=== PATIENT | female | born 1995 | race Hispanic/Latino ===

== ENCOUNTER 2017-12-08 20:10 | Emergency (ER) | payer BC ==
--- NOTE | 2017-12-08 21:05 | EDPHYS ---
Physician Documentation [facility] Name: Imelda Tse Age: 22 yrs Sex: Female : 1995 Arrival Date: 12/08/2017 Time: 20:13 Bed 9 Private MD: ED Physician Roosevelt Chase HPI: 12/08 21:38 This 22 yrs old Female presents to ER via Ambulatory with complaints of Ear snw Pain. 21:38 The patient presents with pain, that is acute. The complaints affect the right ear. snw Onset: The symptoms/episode began/occurred suddenly, today. Associated signs and symptoms: The patient has no apparent associated signs or symptoms. Severity of symptoms: At their worst the symptoms were moderate. The patient has not experienced similar symptoms in the past. It is unknown whether or not the patient has recently seen a physician. no fever, no cough, no nasal dc. 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 - Social history:: Smoking status: Patient/guardian denies using tobacco. - Ebola Screening: : No symptoms or risks identified at this time. ROS: 21:36 Constitutional: Negative for fever, chills, and weight loss, Eyes: Negative for injury, snw pain, redness, and discharge, ENT: Negative for injury and discharge, right ear pain Neck: Negative for injury, pain, and swelling, Cardiovascular: Negative for chest pain, palpitations, and edema, Respiratory: Negative for shortness of breath, cough, wheezing, and pleuritic chest pain, Abdomen/GI: Negative for abdominal pain, nausea, vomiting, diarrhea, and constipation, Back: Negative for injury and pain, : Negative for injury, bleeding, discharge, and swelling, MS/Extremity: Negative for injury and deformity, Skin: Negative for injury, rash, and discoloration, Neuro: Negative for headache, weakness, numbness, tingling, and seizure, Psych: Negative for depression, anxiety, suicide ideation, homicidal ideation, and hallucinations. Exam: 21:36 Constitutional: This is a well developed, well nourished patient who is awake, alert, snw and in no acute distress. Head/Face: Normocephalic, atraumatic. Eyes: Pupils equal round and reactive to light, extra-ocular motions intact. Lids and lashes normal. Conjunctiva and sclera are non-icteric and not injected. Cornea within normal limits. Periorbital areas with no swelling, redness, or edema. Neck: Trachea midline, no thyromegaly or masses palpated, and no cervical lymphadenopathy. Supple, full range of motion without nuchal rigidity, or vertebral point tenderness. No Meningismus. Chest/axilla: Normal chest wall appearance and motion. Nontender with no deformity. No lesions are appreciated. Cardiovascular: Regular rate and rhythm with a normal S1 and S2. No gallops, murmurs, or rubs. Normal PMI, no JVD. No pulse deficits. Respiratory: Lungs have equal breath sounds bilaterally, clear to auscultation and percussion. No rales, rhonchi or wheezes noted. No increased work of breathing, no retractions or nasal flaring. Abdomen/GI: Soft, non-tender, with normal bowel sounds. No distension or tympany. No guarding or rebound. No evidence of tenderness throughout. Back: No spinal tenderness. No costovertebral tenderness. Full range of motion. Skin: Warm, dry with normal turgor. Normal color with no rashes, no lesions, and no evidence of cellulitis. MS/ Extremity: Pulses equal, no cyanosis. Neurovascular intact. Full, normal range of motion. Neuro: Awake and alert, GCS 15, oriented to person, place, time, and situation. Cranial nerves II-XII grossly intact. Motor strength 5/5 in all extremities. Sensory grossly intact. Cerebellar exam normal. Normal gait. 21:36 ENT: External ear(s): are unremarkable, Ear canal(s): are normal, TM's: fluid levels, on the right, Nose: is normal, Mouth: is normal, Dental exam: normal, Voice: is normal. Vital Signs: 21:14 BP 135 / 92; Pulse 78; Resp 16 S; Temp 97.7(O); Pulse Ox 96% on R/A; Weight 63.05 kg bb (R); Height 5 ft. 4 in. (162.56 cm) (R); Pain 8/10; 21:14 Body Mass Index 23.86 (63.05 kg, 162.56 cm) bb MDM: 20:56 Patient medically screened. snw 21:38 Data reviewed: vital signs, nurses notes. Data interpreted: Pulse oximetry: on room air snw is 96 %. Interpretation: acceptable. Counseling: I had a detailed discussion with the patient and/or guardian regarding: the historical points, exam findings, and any diagnostic results supporting the discharge/admit diagnosis, the presence of at least one elevated blood pressure reading (>120/80) during this emergency department visit, the need for outpatient follow up, to return to the emergency department if symptoms worsen or persist or if there are any questions or concerns that arise at home. Special discussion: I have referred the patient to see his PCP for further evaluation of high blood pressure. Based on the history and exam findings, there is no indication for further emergent testing or inpatient evaluation. I discussed with the patient/guardian the need to see the primary care provider for further evaluation of the symptoms. Administered Medications: 21:45 Drug: predniSONE 40 mg Route: PO; bb 22:06 Follow up: Response: No adverse reaction bb 21:45 Drug: Pepcid 20 mg Route: PO; bb 22:06 Follow up: Response: No adverse reaction bb Disposition: 12/09 06:50 Co-signature as Attending Physician, Roosevelt Chase MD I agree with the assessment and wa plan of care. Disposition: 12/08/17 21:03 Discharged to Home. Impression: Otalgia, right ear. - Condition is Stable. - Discharge Instructions: Earache, Adult. - Prescriptions for Prednisone 20 mg Oral Tablet - take 2 tablet by ORAL route once daily for 5 days; 10 tablet. Pepcid 20 mg Oral Tablet - take 1 tablet by ORAL route once daily; 20 tablet. - Medication Reconciliation Form, Thank You Letter, Antibiotic Education, Prescription Opioid Use form. - Follow up: Private Physician; When: 2 - 3 days; Reason: Recheck today's complaints, Continuance of care, Re-evaluation by your physician. Follow up: Emergency Department; When: As needed; Reason: Worsening of condition. Signatures: Thelma Bal FNP-C FNP-Robertow Sia Andrews RN RN bb Appiah, William, MD MD wa Corrections: (The following items were deleted from the chart) 12/08 22:07 21:03 12/08/2017 21:03 Discharged to Home. Impression: Otalgia, right ear. Condition is bb Stable. Forms are Medication Reconciliation Form, Thank You Letter, Antibiotic Education, Prescription Opioid Use. Follow up: Private Physician; When: 2 - 3 days; Reason: Recheck today's complaints, Continuance of care, Re-evaluation by your physician. Follow up: Emergency Department; When: As needed; Reason: Worsening of condition. snw
[2017-12-08] MEDS ORDERED: predniSONE 20 MG TAB ONE (21:48)
[2017-12-08] MEDS ORDERED: FAMOTIDINE 20 MG TAB ONE (21:48)
--- NOTE | 2017-12-08 22:08 | ER ---
Nurse's Notes [facility] Name: Imelda Tse Age: 22 yrs Sex: Female : 1995 Arrival Date: 12/08/2017 Time: 20:13 Bed 9 Private MD: Diagnosis: Otalgia, right ear Presentation: 12/08 21:13 Presenting complaint: Patient states: she is c/o right earache since this morning bb denies all other symptoms. Transition of care: patient was not received from another setting of care. Onset of symptoms was December 08, 2017. Risk Assessment: Do you want to hurt yourself or someone else? Patient reports no desire to harm self or others. Initial Sepsis Screen: Does the patient meet any 2 criteria? No. Patient's initial sepsis screen is negative. Does the patient have a suspected source of infection? No. Patient's initial sepsis screen is negative. Care prior to arrival: None. 21:13 Method Of Arrival: Ambulatory bb 21:13 Acuity: LB 5 bb Triage Assessment: 21:14 General: Appears in no apparent distress. Behavior is calm, cooperative. Pain: bb Complains of pain in right ear Pain currently is 8 out of 10 on a pain scale. EENT: Reports pain in right ear. Neuro: Level of Consciousness is awake, alert, obeys commands, Oriented to person, place, time, situation. Cardiovascular: No deficits noted. Respiratory: Respiratory effort is even, unlabored. Derm: Skin is pink, warm \T\ dry. Musculoskeletal: Circulation, motion, and sensation intact. 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 - Social history:: Smoking status: Patient/guardian denies using tobacco. - Ebola Screening: : No symptoms or risks identified at this time. Screenin:16 Abuse screen: Denies threats or abuse. Nutritional screening: No deficits noted. bb Tuberculosis screening: No symptoms or risk factors identified. Fall Risk None identified. Assessment: 21:16 Reassessment: No changes from previously documented assessment. bb 22:06 Reassessment: Patient and/or family updated on plan of care and expected duration. Pain bb level reassessed. Patient is alert, oriented x 3, equal unlabored respirations, skin warm/dry/pink. pt verbalized understanding of and agrees to plan of care discharge instructions given pt ambulated with steady gait to exit. Vital Signs: 21:14 BP 135 / 92; Pulse 78; Resp 16 S; Temp 97.7(O); Pulse Ox 96% on R/A; Weight 63.05 kg bb (R); Height 5 ft. 4 in. (162.56 cm) (R); Pain 8/10; 21:14 Body Mass Index 23.86 (63.05 kg, 162.56 cm) bb ED Course: 20:13 Patient arrived in ED. am2 20:18 Thelma Bal [facility]C [facility]. snw 20:18 Roosevelt Chase MD is Attending Physician. snw 21:13 Sia Andrews RN is Primary Nurse. bb 21:13 Triage completed. bb 21:14 Arm band placed on Patient placed in an exam room, on a stretcher. bb 21:16 Patient has correct armband on for positive identification. Call light in reach. bb 21:16 No provider procedures requiring assistance completed. Patient did not have IV access bb during this emergency room visit. Administered Medications: 21:45 Drug: predniSONE 40 mg Route: PO; bb 22:06 Follow up: Response: No adverse reaction bb 21:45 Drug: Pepcid 20 mg Route: PO; bb 22:06 Follow up: Response: No adverse reaction bb Outcome: 21:03 Discharge ordered by . snw 22:07 Discharged to home ambulatory. bb 22:07 Condition: stable 22:07 Discharge instructions given to patient, Instructed on discharge instructions, follow up and referral plans. medication usage, Demonstrated understanding of instructions, follow-up care, medications, Prescriptions given X 2. 22:07 Patient left the ED. bb Signatures: Thelma Bal FNP-C FNP-Robertow Sia Andrews, RN RN Jazmin Givens am2
== END 2017-12-08 22:07 | disposition home or self-care (01) ==
LOC: ER 20:10
DX: H92.01 Otalgia, right ear (principal)
CPT/HCPCS: 99283; J7512